=== PATIENT | male | born 1965 | race Caucasian/White ===

== ENCOUNTER 2020-09-23 21:46 | Emergency (ER) | payer SELFPAY ==
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
[2020-09-23 21:51] VITALS: BP 134/85; PULSE 100; RESP 18; TEMP 36.4; O2SAT 94; BMI 23.4
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
[2020-09-23] MEDS: ceFAZolin 1,000 MG in sodium chloride 0.9% (plus) 50 ML 100 MG IV (22:37)
[2020-09-23] MEDS: tetanus-dipt-pertussis 0.5 mL SDV IM (22:39)
[2020-09-23] MEDS: lidocaine 1% INJ 20 mL INJECTION (22:42)
[2020-09-23 23:11] VITALS: PULSE 109; RESP 18; O2SAT 97
--- NOTE | 2020-09-23 23:23 | PC.NURSE ---
[facility] Department and [facility] here for patient. Patient taken by [facility] Department in custody.
== END 2020-09-23 23:11 | disposition home or self-care (01) ==
LOC: ER 22:32
PROVIDERS: Emergency Provider Emergency Medicine
DX: S62.302B Unspecified fracture of third metacarpal bone, right hand, initial encounter for open fracture (principal); W34.00XA Accidental discharge from unspecified firearms or gun, initial encounter; Z23 Encounter for immunization
CPT/HCPCS: 29125; 73130; 90471; 90715; 96365; 99283; A6446; J0690

== ENCOUNTER 2020-09-28 11:39 | Emergency (ER) | payer SELFPAY ==
[2020-09-28 11:48] VITALS: BP 134/84; PULSE 79; RESP 18; TEMP 36.6; O2SAT 98; BMI 22.5
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
== END 2020-09-28 13:04 | disposition home or self-care (01) ==
PROVIDERS: Emergency Provider Nurse Practitioner Family
DX: Z48.02 Encounter for removal of sutures (principal); M79.89 Other specified soft tissue disorders
CPT/HCPCS: 99282

== ENCOUNTER → 2020-11-10 11:43 | Outpatient (BNVA) | payer OTHER, SELFPAY | PROVIDERS: Visit Provider Nurse Practitioner Family | DX: Z20.822 Contact with and (suspected) exposure to COVID-19 (principal) | CPT/HCPCS: 87635 ==

== ENCOUNTER 2020-11-12 21:57 | Emergency (ER) | payer SELFPAY ==
[2020-11-12 22:41] VITALS: BP 146/80; PULSE 71; RESP 18; TEMP 36.6; O2SAT 98; BMI 23.1
--- NOTE | 2020-11-12 22:49 | ECG_ITS ---
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
--- NOTE | 2020-11-12 22:50 | CTR_ITS ---
PROCEDURE INFORMATION: Exam: CT Head Without Contrast Exam date and time: 11/12/2020 10:56 PM Age: 55 years old Clinical indication: Altered mental status/memory loss; Confusion or disorientation; Patient HX: Transient confusion and incoherence TECHNIQUE: Imaging protocol: Computed tomography of the head without contrast. Radiation optimization: All CT scans at this facility use at least one of these dose optimization techniques: automated exposure control; mA and/or kV adjustment per patient size (includes targeted exams where dose is matched to clinical indication); or iterative reconstruction. COMPARISON: No relevant prior studies available. RADIATION DOSE METRICS: Total DLP (mGy-cm): 877.78 FINDINGS: Brain: No acute intracranial hemorrhage or mass effect. There is mild decreased attenuation in the periventricular white matter, likely from microvascular disease. There is an old lacunar infarct in the right thalamus. No definite acute infarct by CT. MRI could be more sensitive/specific for detection, as clinically directed. Cerebral ventricles: Ventricle size is normal for age. Bones/joints: No definite acute skull fracture. Paranasal sinuses: Included paranasal sinuses are essentially clear. Mastoid air cells: No significant acute finding. CT/CT head wo con* [id number] IMPRESSION: 1. No acute intracranial hemorrhage or mass effect. 2. Changes of microvascular disease, and old right lacunar infarct. 3. No definite acute infarct by CT, see above. 4. Other findings discussed above. Radiation Dose CTDIVOL = (mGy): DLP = 877.78 (mGy-cm)
[2020-11-12] MEDS: sodium chloride 0.9% 1,000 ML 999 ML IV (23:15)
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
[2020-11-12 23:44] LABS: Basophils % 0.4 %; Eosinophils # 0.2 10^3/uL (0.0-0.8); Eosinophils % 1.7 %; Hematocrit 42.3 % (42.0-52.0); Hemoglobin 13.7 g/dL (11.7-16.6); Lymphocytes # 2.2 10^3/uL (0.8-4.8); Lymphocytes % 24.5 %; Mean Corpuscular HGB Conc 32.4 g/dL (30.0-36.0); Mean Corpuscular Hemoglobin 32.3 pg (28.0-34.0); Mean Corpuscular Volume 99.8 fL (80-94); Mean Platelet Volume 9.9 fL (7.4-10.4); Monocytes # 1.2 10^3/uL (0.2-0.9); Monocytes % 13.5 %; Neutrophils # 5.44 10^3/uL (1.8-7.7); Neutrophils % 59.5 %; Nucleated Red Blood Cells % 0 %; Platelet Count 298 10^3/cmm (130-400); Red Blood Count 4.24 10^6/uL (4.1-5.3); Red Cell Distribution Width 11.6 % (12.1-15.1); White Blood Count 9.2 10^3/uL (4.0-10.0)
[2020-11-13 00:07] LABS: Alanine Aminotransferase 14 U/L (0-41); Albumin Level 4.6 g/dL (3.5-5.2); Alkaline Phosphatase 70 IU/L (40-130); Anion Gap 15.4 (5-19); Aspartate Amino Transferase 11 U/L (0-40); Blood Urea Nitrogen 7 mg/dL (6-20); Calcium 9.4 mg/dL (8.5-10.5); Carbon Dioxide 25 mmol/L (22-29); Chloride 100 mmol/L (98-107); Globulin 3.2 g/dL (1.3-4.6); Glomerular Filtration Rate 100.4 mL/min (90-130); Glucose 103 mg/dL (65-115); Osmolality Calculated 280 mOsm/kg (285-295); Potassium 4.4 mmol/L (3.5-5.1); Sodium 136 mmol/L (136-145); Total Bilirubin 0.4 mg/dL (0.15-1.2); Total Protein 7.8 g/dL (6.6-8.7)
[2020-11-13 00:56] VITALS: BP 140/78; PULSE 71; RESP 18; O2SAT 98
== END 2020-11-13 00:55 | disposition home or self-care (01) ==
PROVIDERS: Emergency Provider Emergency Medicine
DX: R53.1 Weakness (principal)
CPT/HCPCS: 70450; 80053; 85025; 93005; 96360; 99283; J7030

== ENCOUNTER → 2020-12-16 15:26 | Outpatient (BNVA) | payer SELFPAY | PROVIDERS: Visit Provider Nurse Practitioner Family | DX: M79.641 Pain in right hand (principal) | CPT/HCPCS: 73130 ==

== ENCOUNTER 2023-06-01 10:20 | Outpatient (CLI) | payer OTHER, SELFPAY ==
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
== END 2023-06-01 10:21 | disposition home or self-care (01) ==
LOC: RAD 10:28
PROVIDERS: Visit Provider Family Medicine
DX: M79.641 Pain in right hand (principal); Z87.81 Personal history of (healed) traumatic fracture; Z87.828 Personal history of other (healed) physical injury and trauma
CPT/HCPCS: 73120